=== PATIENT | male | born 1955 | race Caucasian/White ===

== ENCOUNTER → 2023-10-16 11:01 | Outpatient (REF) | payer OTHER, SELFPAY | LOC: RCS 11:01 | PROVIDERS: ATTENDING PHYSICIAN Internal Medicine Cardiovascular Disease; FAMILY PHYSICIAN Nurse Practitioner Adult Health | DX: E78.5 Hyperlipidemia, unspecified (principal); Z01.810 Encounter for preprocedural cardiovascular examination; E11.9 Type 2 diabetes mellitus without complications; I10 Essential (primary) hypertension; G47.30 Sleep apnea, unspecified; E66.9 Obesity, unspecified; R94.31 Abnormal electrocardiogram [ECG] [EKG] | CPT/HCPCS: 93306 ==

== ENCOUNTER → 2024-03-22 18:00 | Outpatient (REF) | payer OTHER, SELFPAY ==
--- NOTE | 2024-01-09 09:41 | PN.DIAED02 ---
Referral
DSME Class Series Code: [id number]
Referred For: Diabetes Self-Management Training
PHI Release Authorization Form Signed: Yes
Demographic
(1) Type 2 diabetes mellitus
Status: Acute Code(s): E11.9 - Type 2 diabetes mellitus without complications
Patient's primary language-: Latvian
Education: Vocation/Trade
Occupation: Retired
- Social
Primary Support Person: Self & spouse
Primary Care Takers: Self
Living Arrangements: Self & spouse
- Learning Methods
Preferred Method: Hands-on demonstration
Barriers to Learning: None
Glycemic Control
- Blood Glucose Monitoring Assessment
Date: 01/08/24
Blood glucose monitoring at home: Yes
Monitor Brands: Accu-Chek (Guide)
Frequency: 2x per day (currently testing FBS and 2130, new testing pattern given)
Time: fasting, after breakfast, after lunch, after dinner
- Hemoglobin A1c
Date: 09/12/23
A1C Percentage (%): 7.3
Medical History of Diabetes
Family Diabetes History: Father, Multiple family members (2 uncles, cousins)
Previous Diabetes Education: No
Previous visit with Dietitian: No
Complications/Comorbidity/Specialist: Other / symptoms (bilat TKR)
Measures
- Anthropometrics
Height: 5 ft 8 in
Actual Weight: 204 lb 4 oz (intentional 35# weight loss since 09/30))
- Blood Pressure / Pulse
Blood pressure: 138/75
- Diabetes Management
Medical Management for Diabetes: Complete physical exam (09/2023), Dental exam (08/2023), Dilated eye exam (03/2023)
Self-Care
- Tobacco Usage
Do you now, or have you ever smoked?: Quit more than 1 year ago (50 yrs ago)
- Alcohol & Drugs Usage
Drinks Alcohol: No
- Meals & Dining
Meals & Dining: Patient skips meals: Yes (has fruit for lunch), Food Intolerance / Allergy: No, Cultural / Jehovah'S Witness Dietary Needs: No
Primary Food School Transportation Supervisor: Self
Primary Game Show Host: Spouse
- Physical Activity
Physical Limitation: No
Patient participates in physical Activity: Yes
Activity Types: Combination (participates at gym 3-4 times /week- stretching,bicycle (15-20 min) and weights), walking (walks daily for 1 1/2 hr)
Duration: > 50 minutes
Frequency: 6-7x per week
Intensity: Easy
- Patient-Self Assessment
Diabetes Knowledge: Poor
Feelings About Diabetes: Acceptance
General Health: Good
Importance of Health: Extremely
Stress Level: Low
Diabetes Interferes With:: Nothing
Depression Survey Score: 1
Care Plan
- Education Needs
Patient Education Needs: Diabetes disease process, Chronic complications, Acute complications, Medication, Monitoring, Physical activity, Psychosocial Adjustment, Nutritional management, Goal setting & problem solving
Recommended Diabetes Training Program based on assessment: Outpatient Diabetes Education Program
- Plan of Care
Plan of Care:
Joseluis states recently diagnosed. A1C 09/12/23 result of 7.3%, 06/12/23 result of 6.8%. Taking Metformin (believes it is 500 mg), 2x/day, suggest with breakfast and dinner. He has a working glucometer and testing FBS and around 2130. FBS results ranging
108-119 mg/dl. Recommend new testing pattern of FBS and 2 hr after one meal/day. Suggest checking after different meals on different days to assess the effect his food is having on BS. He has eliminated bread, and pasta and reduced his portions. May
have an omelet w/veggies for breakfast, a piece of fruit for lunch and dinner. Suggest adding protein when consuming a CHO and discussed that he will be receiving a meal plan specific for him. Concern that he isn't consuming enough calories.
Intentional 35# weight loss since 09/30. He is active walking dog and attends gym. Goals established and directions to classroom given. to attend.
--- NOTE | 2024-01-09 10:01 | PN.DIAED04 ---
Education Record
- Education Record
Class Attended: Class 1 (pre regisration 01/08/24 for outpt DSME classes starting 02/16/24)
DSME Class Series Code: [id number]
Instructor: Registered Nurse (Didi Shah, RN, BSN, [facility] 2001)
Class Curriculum:
Outpatient Diabetes Education Program:
Initial Assessment (45 minutes)
Individualized assessment
Develop personal strategies to promote health and behavior change
Development of diabetes self-management support plan
Class Length (mins): 60
Pre-Program Knowledge: No knowledge
Pre-Test Score (%): 53
Goals
- Goal 1
Being Active: Other (Continue with daily walking and attending gym 3-4 times/week)
Goals To Be Evaluated: Other
- Goal 2
Healthy Eating: Reduce portion sizes
Goals To Be Evaluated: Reduce portion sizes
- Goal 3
Monitoring: Take blood sugar in the prescribed pattern (handout on pattern and expected results given)
Goals To Be Evaluated: Test BG-prescribed times
== END ==
LOC: DES 18:00
PROVIDERS: ATTENDING PHYSICIAN Nurse Practitioner Adult Health
DX: E11.9 Type 2 diabetes mellitus without complications (principal)
CPT/HCPCS: 99078

== ENCOUNTER → 2024-03-29 18:00 | Outpatient (REF) | payer OTHER, SELFPAY | LOC: DES 18:00 | PROVIDERS: ATTENDING PHYSICIAN Nurse Practitioner Adult Health | DX: E11.9 Type 2 diabetes mellitus without complications (principal) | CPT/HCPCS: 99078 ==

== ENCOUNTER → 2024-04-05 18:00 | Outpatient (REF) | payer OTHER, SELFPAY | LOC: DES 18:00 | PROVIDERS: ATTENDING PHYSICIAN Nurse Practitioner Adult Health | DX: E11.9 Type 2 diabetes mellitus without complications (principal) | CPT/HCPCS: 99078 ==

== ENCOUNTER → 2024-04-12 14:21 | Outpatient (REF) | payer OTHER, SELFPAY ==
--- NOTE | 2024-04-16 08:31 | PN.DIAED04 ---
Education Record
- Education Record
Class Attended: Class 4
DSME Class Series Code: [id number]
Instructor: Nurse Practitioner (SIVAKUMAR Marie)
Class Length (mins): 120
Post-Class 4 Test Score (%): 100
== END ==
LOC: DES 14:21
PROVIDERS: ATTENDING PHYSICIAN Nurse Practitioner Adult Health
DX: E11.9 Type 2 diabetes mellitus without complications (principal)
CPT/HCPCS: 99078

== ENCOUNTER → 2024-04-19 12:31 | Outpatient (REF) | payer OTHER, SELFPAY | LOC: DES 12:31 | PROVIDERS: ATTENDING PHYSICIAN Nurse Practitioner Adult Health | DX: E11.9 Type 2 diabetes mellitus without complications (principal) | CPT/HCPCS: 99078 ==

== ENCOUNTER 2024-09-08 06:10 | Day surgery (SDC) | payer OTHER, SELFPAY ==
[2024-09-08 07:57] LABS: Glucose - Point of Care 101 mg/dl (70-99)
== END 2024-09-08 09:53 | disposition home or self-care (01) ==
LOC: GI 06:10
PROVIDERS: ATTENDING PHYSICIAN Internal Medicine
DX: Z12.11 Encounter for screening for malignant neoplasm of colon (principal); D12.0 Benign neoplasm of cecum; D12.1 Benign neoplasm of appendix; Z86.0100 Personal history of colon polyps, unspecified
CPT/HCPCS: 45385; 88305; 82962

== ENCOUNTER 2024-10-26 06:12 | Day surgery (SDC) | payer OTHER, SELFPAY ==
[2024-10-26 12:43] VITALS: BMI 28.7
[2024-10-26 12:44] VITALS: BP 130/75; BMI 28.7
[2024-10-26 13:11] LABS: Glucose - Point of Care 100 mg/dl (70-99)
[2024-10-26 15:17] VITALS: BP 113/78
[2024-10-26 15:30] VITALS: BP 120/98
[2024-10-26 15:45] VITALS: BP 121/107
== END 2024-10-26 16:08 | disposition home or self-care (01) ==
LOC: SDS 06:12
PROVIDERS: ATTENDING PHYSICIAN Internal Medicine Gastroenterology
DX: D12.1 Benign neoplasm of appendix (principal); D12.8 Benign neoplasm of rectum; Z86.0101 Personal history of adenomatous and serrated colon polyps; K64.0 First degree hemorrhoids
CPT/HCPCS: 45390; 45385; 88305; 82962